=== PATIENT | female | born 1950 | race Caucasian/White ===

== ENCOUNTER 2016-12-07 14:13 | Outpatient (CLI) | payer MEDICARE, OTHER ==
--- NOTE | 2016-12-07 16:39 | Mammography Report ---
DIGITAL DIAGNOSTIC BILATERAL MAMMOGRAM: 12/07/2016 CLINICAL INDICATION: Palpable abnormality far lateral left breast. TECHNIQUE: Bilateral CC and MLO views, left true lateral and laterally exaggerated craniocaudal view s. A marker was placed at the site of palpable abnormality indicated by the patient. COMPARISON: 07/18/2004, 06/19/2000 from [place], [place]. FINDINGS: The breasts again demonstrate heterogeneously dense fibroglandular parenchyma bilaterally. Coarse, typically benign calcifications are present. No suspicious masses, clustered microcalcific ations, or regions of architectural distortion are identified. Specifically, no mammographic abnorma lity is appreciated in the left far lateral breast, at the site indicated by the marker. Please also refer to left breast ultrasound of the same day. IMPRESSION: BENIGN FINDINGS. RECOMMENDATION: Routine annual screening unless otherwise clinically indicated. BI-RADS category 2, benign findings. STANDARD QUALIFYING STATEMENTS 1. This examination was reviewed with the aid of Computer-Aided Detection (CAD). 2. A negative or benign imaging report should not delay biopsy if clinically suspicious findings are present. Consider surgical consultation if warranted. More than 5% of cancers are not identified by i maging. 3. Dense breasts may obscure an underlying neoplasm. JOB #: [id number] EXT JOB #:[id number]
--- NOTE | 2016-12-07 16:40 | Ultrasound Report ---
LEFT BREAST ULTRASOUND: 12/07/2016 CLINICAL INDICATION: Palpable abnormality far lateral left breast. TECHNIQUE: Real-time scanning was performed with nutrition representative static images obtained. FINDINGS: Ultrasound of the palpable abnormality identified by the patient was performed. At this site, unremarkable subcutaneous fat is seen. No discrete solid or cystic mass is appreciated. No sonographically suspicious findings are seen. IMPRESSION: NEGATIVE EXAMINATION. RECOMMENDATION: ROUTINE ANNUAL SCREENING UNLESS OTHERWISE CLINICALLY INDICATED. BIRADS CATEGORY 1-NEGATIVE. JOB #: [id number] EXT JOB #:
== END 2016-12-07 14:14 | disposition home or self-care (01) ==
LOC: DI 14:13
PROVIDERS: ATTEND Family Medicine
DX: N63 Unspecified lump in breast (principal)
CPT/HCPCS: 76642; G0204; 77066

== ENCOUNTER 2018-02-14 09:17 | Emergency (ER) | payer MEDICARE, OTHER ==
--- NOTE | 2018-02-14 09:52 | XRAY Report ---
Reason: chest pain Procedure Date: 02/14/2018 Accession Number: [id number] / [id number] Procedure: XR - Chest 2 View X-Ray CPT Code: 29472 FULL RESULT: EXAM: CHEST RADIOGRAPHY EXAM DATE: 02/14/2018 09:45 AM. CLINICAL HISTORY: Chest Pain. COMPARISON: None. TECHNIQUE: 2 views. FINDINGS: Lungs/Pleura: No focal opacities evident. No pleural effusion. No pneumothorax. Normal volumes. Mediastinum: Heart and mediastinal contours are unremarkable. Other: None. IMPRESSION: Normal 2-view chest radiography. RADIA
[2018-02-14 09:59] LABS: BASOPHILS # (AUTO) 0.2 10^3/uL (0.0-0.1); BASOPHILS % (AUTO) 2.3 %; EOSINOPHILS # (AUTO) 0.5 10^3/uL (0.0-0.7); EOSINOPHILS % (AUTO) 7.7 %; HGB - HEMOGLOBIN 12.9 g/dL (12.0-16.0); LYMPHOCYTES # (AUTO) 1.8 10^3/uL (1.5-3.5); LYMPHOCYTES % (AUTO) 27.5 %; MEAN CORPUSCULAR HEMOGLOBIN 29.7 pg (27.0-31.0); MEAN CORPUSCULAR HGB CONC 33.8 g/dL (32.0-36.0); MEAN PLATELET VOLUME 8.3 fL (7.9-10.8); MONOCYTES # (AUTO) 0.4 10^3/uL (0.0-1.0); NEUTROPHILS # (AUTO) 3.7 10^3/uL (1.5-6.6); NEUTROPHILS % (AUTO) 56.5 %; PLT - PLATELET COUNT 271 10^3/uL (130-450); RED BLOOD COUNT 4.35 10^6/uL (4.20-5.40); RED CELL DISTRIBUTION WIDTH 13.1 % (12.0-15.0); WHITE BLOOD COUNT 6.6 x10^3/uL (4.8-10.8)
[2018-02-14 10:17] LABS: ALBUMIN 4.2 g/dL (3.2-5.5); ALBUMIN/GLOBULIN RATIO 1.4 (1.0-2.2); BILIRUBIN,TOTAL 0.7 mg/dL (0.2-1.0); CALCIUM 9.1 mg/dL (8.5-10.3); CREATININE 0.7 mg/dL (0.4-1.0); TOTAL PROTEIN 7.3 g/dL (6.7-8.2)
--- NOTE | 2018-02-14 11:48 | ED Physician Documentation ---
PD HPI CHEST PAIN - Stated complaint Stated Complaint: CHEST PX - Chief complaint Chief Complaint: General - History obtained from History obtained from: Patient - History of Present Illness Timing - duration: Weeks (2 or 3) Timing - details: Still present Quality: Pressure Location: Substernal Associated symptoms: Nausea Similar symptoms before: Work up / diagnostics (Cardiac workup in April 2017 for similar symptoms was negative except for diagnosing hyperlipidemia.) - Additional information Additional information: The patient is a 67-year-old female who presents with substernal chest pain that has been waxing and waning for the past 2 or 3 weeks. She describes it as "pressure." She reports associated nausea, without vomiting. She occasionally feels shortness of breath with her symptoms. Initially she was taking Naprosyn 3 times daily, but that no longer seems to help. Currently nothing seems to alleviate or worsen the pain. She reports similar symptoms in April 2017. She underwent cardiac workup at that time which was negative. She was diagnosed with hyperlipidemia at that time and was started on a statin medication. She also is treated for hypertension. She has no history of diabetes or cigarette smoking. There is family history of cardiac disease, but not at a particularly early age. Review of Systems Constitutional: denies: Fever, Fatigue Ears: denies: Tinnitus/ringing Nose: denies: Congestion Throat: denies: Sore throat Cardiac: reports: Chest pain / pressure. denies: Palpitations Respiratory: denies: Dyspnea, Cough GI: reports: Nausea. denies: Abdominal Pain, Vomiting : denies: Dysuria Skin: denies: Rash Musculoskeletal: denies: Neck pain Neurologic: denies: Focal weakness, Numbness PD PAST MEDICAL HISTORY - Past Medical History Cardiovascular: Hypertension, High cholesterol Endocrine/Autoimmune: None - Allergies Allergies/Adverse Reactions: Allergies Allergy/AdvReac Type Severity Reaction Status Date / Time tetracycline Allergy Unknown Verified 02/14/18 09:33 - Social History Does the pt smoke?: No Smoking Status: Never smoker PD ED PE NORMAL - Vitals Vital signs reviewed: Yes (normal) - General General: Alert and oriented X 3, Well developed/nourished - HEENT HEENT: Atraumatic, Pharynx benign - Neck Neck: No adenopathy, No JVD - Cardiac Cardiac: RRR, No murmur - Respiratory Respiratory: No respiratory distress, Clear bilaterally - Abdomen Abdomen: Normal bowel sounds, Soft, No organomegaly, Other (Mild tenderness to palpation in the epigastric region, without rebound or guarding.) - Back Back: No CVA TTP - Derm Derm: No rash - Extremities Extremities: No edema, No calf tenderness / cord - Neuro Neuro: Alert and oriented X 3, No motor deficit, Normal speech Results - Vitals Vitals: Oxygen O2 Source Room air - EKG (time done) 0:24 Rate: Rate (enter#) (54) Rhythm: NSR Aspen: Normal Intervals: Normal DC QRS: Normal Ischemia: Normal ST segments Computer interpretation: Agree with computer - Labs Labs: Laboratory Tests 02/14/18 02/14/18 02/14/18 09:56 09:56 09:56 WBC 6.6 RBC 4.35 Hgb 12.9 Hct 38.3 MCV 88.0 MCH 29.7 MCHC 33.8 RDW 13.1 Plt Count 271 MPV 8.3 Neut # (Auto) 3.7 Lymph # (Auto) 1.8 [place] # (Auto) 0.4 Eos # (Auto) 0.5 Baso # (Auto) 0.2 H Absolute Nucleated RBC 0.00 Nucleated RBC % 0.1 Sodium 138 Potassium 4.4 Chloride 103 Carbon Dioxide 27 Anion Gap 8.0 BUN 18 Creatinine 0.7 Estimated GFR (MDRD) 83 L Glucose 96 Calcium 9.1 Total Bilirubin 0.7 AST 26 ALT 22 Alkaline Phosphatase 71 Troponin I < 0.04 Total Protein 7.3 Albumin 4.2 Globulin 3.1 Albumin/Globulin Ratio 1.4 Lipase 39 - Rads (name of study) CXR Radiology: Prelim report reviewed, EMP read contemporaneously, See rad report (Normal 2 view chest.) PD MEDICAL DECISION MAKING - ED course Complexity details: reviewed old records, reviewed results, re-evaluated patient, considered differential, d/w patient, d/w family ED course: The patient's presentation is most consistent with gastroesophageal reflux disease. I doubt coronary artery disease as a cause for her symptoms. Her electrocardiogram is unremarkable, as is her chest x-ray and CBC and chemistry panel. Troponin is normal. Treatment in the emergency department included administration of GI cocktail, which improved her symptoms. She is being discharged with prescription for ranitidine. I discussed with her and her the diagnosis, symptomatic treatment and outpatient follow-up, as well as potentially worrisome signs or symptoms that should prompt reevaluation in the emergency department. Departure - Departure Disposition: 01 Home, Self Care Clinical Impression: GERD (gastroesophageal reflux disease) Qualifiers: Esophagitis presence: esophagitis presence not specified Qualified Code(s): K21.9 - Gastro-esophageal reflux disease without esophagitis Condition: Stable Instructions: ED GERD Follow-Up: Dano Leiva MD [Primary Care Provider] - Comments: Continue using ranitidine as previously prescribed. You can use liquid antacid, such as Maalox or Mylanta, if you develop recurrent symptoms. Minimize coffee, kwasi, tea, and alcohol. Follow-up with your primary physician within 1-2 weeks. Call to schedule appointment. Return to the emergency department if you develop increasing chest or abdominal pain, shortness of breath, or otherwise worsening symptoms. Discharge Date/Time: 02/14/18 12:53
[2018-02-14] MEDS ORDERED: MAG HYDROX/AL HYDROX/SIMETH 30 ML UDC PO STA (12:01)
[2018-02-14] MEDS ORDERED: LIDOCAINE VISCOUS 2% 15 ML UDC MM STA (12:01)
[2018-02-14 12:53] VITALS: BP 101/74
== END 2018-02-14 12:53 | disposition home or self-care (01) ==
LOC: ED 09:17
DX: K21.9 Gastro-esophageal reflux disease without esophagitis (principal); I10 Essential (primary) hypertension
CPT/HCPCS: 36415; 71046; 80053; 83690; 84484; 85025; 93005; 99283; 99284; A9270